=== PATIENT | female | born 1970 | race Two or more races ===

== ENCOUNTER 2023-08-04 17:51 | Inpatient (IN) | payer MEDICAID ==
[~2023-08-04] VITALS: Ht 170.2 cm; Wt 78.5 kg
[2023-08-04] MEDS ORDERED: PNEUMOCOCCAL VACCINE POLYVALENT 0.5 ML SYRINGE [PPSV23] IM. ONE (19:45)
[2023-08-04] MEDS ORDERED: INFLUENZA VIRUS VACCINE QVS 2023-24 (6MO+)/PF 60 MCG/0.5 ML SYRINGE IM. ONE (19:45)
[2023-08-04 19:56] LABS: GLUCOMETER DEV NAME(LOC) POC.BV; POC SARS-COV2 AG, FIA NEGATIVE (NEGATIVE)
[2023-08-05 03:05] VITALS: BP 138/84; PULSE 96; RESP 18; TEMP 97.5; O2SAT 99
[2023-08-05] MEDS ORDERED: POTASSIUM CHLORIDE 20 MEQ ER TABLET PO ONE (06:15)
[2023-08-05 07:56] LABS: BASOPHILS % (AUTO) 0.3 % (0.0-2.0); EOSINOPHILS % (AUTO) 0.2 % (1.0-6.0); HEMATOCRIT 38.4 % (36-46); HEMOGLOBIN 13.3 g/dL (12.0-16.0); LYMPHOCYTES # (AUTO) 0.6 K/uL (1.0-4.8); LYMPHOCYTES % (AUTO) 6.3 % (22.0-44.0); MEAN CORPUSCULAR HEMOGLOBIN 32.5 pg (26.0-34.0); MEAN CORPUSCULAR HGB CONC 34.7 G/dL (31.0-37.0); MEAN CORPUSCULAR VOLUME 94 fL (80-100); MONOCYTES # (AUTO) 0.8 K/uL (0.1-1.0); MONOCYTES % (AUTO) 8.9 % (2.0-9.0); NEUTROPHILS # (AUTO) 7.5 K/uL (1.8-7.7); NEUTROPHILS % (AUTO) 84.3 % (40.0-70.0); PLATELET COUNT (AUTO) 274 K/uL (150-450); RED CELL DISTRIBUTION WIDTH 13.3 % (11.5-14.5)
[2023-08-05 08:05] LABS: HEMOGLOBIN A1C 5.5 % (3.8-5.6)
[2023-08-05 08:12] LABS: ALANINE AMINOTRANSFERASE 23 U/L (12-78); ALBUMIN 3.6 g/dL (3.4-5.0); ALKALINE PHOSPHATASE 122 U/L (46-116); ANION GAP 14 mmol/L (8-16); ASPARTATE AMINOTRANSFERASE 25 U/L (15-37); BILIRUBIN,TOTAL 1.1 mg/dL (0.1-1.0); CALCIUM, TOTAL 9.1 mg/dL (8.8-10.5); CARBON DIOXIDE 23 mmol/L (22-29); CHLORIDE 107 mmol/L (98-107); CHOL/HDL RATIO 2.1 (3.9-5.7); CHOLESTEROL 141 mg/dL (131-200); CREATININE 0.63 mg/dL (0.60-1.30); FREE T4 (FREE THYROXINE) 1.65 ng/dL (0.76-1.46); GLOMERULAR FILTR. RATE CALC > 60 mL/min (>60); GLUCOSE,RANDOM 104 mg/dL (70-110); HDL CHOLESTEROL 66 mg/dL (40-60); LDL CHOL (CALC.) 58 mg/dL (0-130); POTASSIUM 3.3 mmol/L (3.5-5.1); SODIUM SERUM 144 mmol/L (136-145); THYROID STIMULATING HORMONE 1.22 uIU/mL (0.36-3.74); TOTAL PROTEIN, SERUM 7.8 g/dL (6.4-8.2); TRIGLYCERIDES 83 mg/dL (15-150); UREA NITROGEN, BLOOD 25 mg/dL (7-18)
[2023-08-05 08:13] VITALS: BP 145/79; PULSE 90; RESP 16; TEMP 98; O2SAT 96
[2023-08-05] MEDS: LORazepam 2 MG TABLET PO PRN (08:41)
[2023-08-05] MEDS: HALOPERIDOL 5 MG TABLET PO PRN (09:55)
[2023-08-05] MEDS: QUEtiapine FUMARATE 100 MG TABLET PO SCH ×2 (13:25→20:13)
[2023-08-05] MEDS: FLUoxetine HCL 20 MG CAPSULE PO SCH (13:25)
[2023-08-05] MEDS ORDERED: ACETAMINOPHEN 325 MG TABLET PO PRN (14:30)
[2023-08-05] MEDS ORDERED: MAG HYDROX/ALUMINUM HYD/SIMETH ES 30 ML SUSPENSION UDCUP PO PRN (14:30)
[2023-08-05] MEDS ORDERED: ALBUTEROL SULFATE HFA 90 MCG/PUFF 8 GM INHALER IH PRN (14:30)
[2023-08-05] MEDS ORDERED: LOPERAMIDE HCL 2 MG CAPSULE PO PRN (14:30)
[2023-08-05] MEDS ORDERED: NICOTINE 14 MG/24 HOUR PATCH TD PRN (14:30)
[2023-08-05] MEDS ORDERED: CloNIDine HCL 0.1 MG TABLET PO PRN (14:30)
[2023-08-05] MEDS ORDERED: DOCUSATE SODIUM 100 MG CAPSULE PO PRN (14:30)
[2023-08-05] MEDS ORDERED: MAGNESIUM HYDROXIDE SUSPENSION 30 ML UDCUP PO PRN (14:30)
[2023-08-05] MEDS ORDERED: ONDANSETRON HCL 4 MG TABLET PO PRN (14:30)
[2023-08-05] MEDS ORDERED: PETROLATUM,WHITE 28 GM JELLY TP PRN (14:30)
[2023-08-05] MEDS ORDERED: GuaiFENesin/D-METHORPHAN [SUGAR-FREE] 200-20MG/10 ML SYRUP UDCUP PO PRN (14:30)
[2023-08-05] MEDS ORDERED: IBUPROFEN 400 MG TABLET PO PRN (14:30)
[2023-08-05 20:00] VITALS: BP 117/86; PULSE 100; RESP 18; TEMP 97.6; O2SAT 97
[2023-08-06] MEDS: ZOLPIDEM TARTRATE 10 MG TABLET PO PRN (02:42)
[2023-08-06 07:47] LABS: BASOPHILS % (AUTO) 0.3 % (0.0-2.0); EOSINOPHILS % (AUTO) 1.2 % (1.0-6.0); HEMATOCRIT 37.2 % (36-46); HEMOGLOBIN 12.8 g/dL (12.0-16.0); LYMPHOCYTES # (AUTO) 0.7 K/uL (1.0-4.8); LYMPHOCYTES % (AUTO) 12.5 % (22.0-44.0); MEAN CORPUSCULAR HEMOGLOBIN 32.2 pg (26.0-34.0); MEAN CORPUSCULAR HGB CONC 34.4 G/dL (31.0-37.0); MEAN CORPUSCULAR VOLUME 94 fL (80-100); MONOCYTES # (AUTO) 0.5 K/uL (0.1-1.0); MONOCYTES % (AUTO) 8.6 % (2.0-9.0); NEUTROPHILS # (AUTO) 4.2 K/uL (1.8-7.7); NEUTROPHILS % (AUTO) 77.4 % (40.0-70.0); PLATELET COUNT (AUTO) 246 K/uL (150-450); RED BLOOD CELL COUNT(AUTO) 3.96 MIL/uL (4.00-5.20); RED CELL DISTRIBUTION WIDTH 13.2 % (11.5-14.5); WHITE BLOOD COUNT (AUTO) 5.5 K/uL (4.5-11.0)
[2023-08-06 07:54] LABS: HEMOGLOBIN A1C 5.4 % (3.8-5.6)
[2023-08-06 08:01] LABS: ALANINE AMINOTRANSFERASE 25 U/L (12-78); ALBUMIN 3.5 g/dL (3.4-5.0); ALKALINE PHOSPHATASE 114 U/L (46-116); ANION GAP 11 mmol/L (8-16); ASPARTATE AMINOTRANSFERASE 25 U/L (15-37); BILIRUBIN,TOTAL 0.5 mg/dL (0.1-1.0); CALCIUM, TOTAL 9.1 mg/dL (8.8-10.5); CARBON DIOXIDE 28 mmol/L (22-29); CHLORIDE 107 mmol/L (98-107); CREATININE 0.58 mg/dL (0.60-1.30); GLOMERULAR FILTR. RATE CALC > 60 mL/min (>60); GLUCOSE,RANDOM 94 mg/dL (70-110); POTASSIUM 3.4 mmol/L (3.5-5.1); SODIUM SERUM 146 mmol/L (136-145); TOTAL PROTEIN, SERUM 7.3 g/dL (6.4-8.2); UREA NITROGEN, BLOOD 23 mg/dL (7-18)
[2023-08-06 08:09] LABS: THYROID STIMULATING HORMONE 2.27 uIU/mL (0.36-3.74)
[2023-08-06 08:20] VITALS: BP 140/78; PULSE 116; RESP 19; TEMP 97.5; O2SAT 95
[2023-08-06] MEDS: MULTIVITAMINS WITH MINERALS, THERAPEUTIC TABLET PO SCH (08:20)
[2023-08-06] MEDS: QUEtiapine FUMARATE 100 MG TABLET PO SCH ×2 (08:20→21:00)
[2023-08-06] MEDS: FLUoxetine HCL 20 MG CAPSULE PO SCH (08:20)
[2023-08-06] MEDS ORDERED: POTASSIUM CHLORIDE 20 MEQ ER TABLET PO ONE (09:00)
[2023-08-06] MEDS: HALOPERIDOL 5 MG TABLET PO PRN (10:03)
[2023-08-06] MEDS: LORazepam 2 MG TABLET PO PRN (10:03)
[2023-08-06 21:07] VITALS: BP 131/91; PULSE 100; RESP 18; TEMP 97.5; O2SAT 99
[2023-08-07] MEDS: FLUoxetine HCL 20 MG CAPSULE PO SCH (08:23)
[2023-08-07] MEDS: QUEtiapine FUMARATE 100 MG TABLET PO SCH ×2 (08:23→20:00)
[2023-08-07] MEDS: LORazepam 2 MG TABLET PO PRN (08:23)
[2023-08-07] MEDS: HALOPERIDOL 5 MG TABLET PO PRN (08:23)
[2023-08-07] MEDS: MULTIVITAMINS WITH MINERALS, THERAPEUTIC TABLET PO SCH (08:24)
[2023-08-07 08:51] VITALS: BP 138/85; PULSE 98; RESP 20; TEMP 97.5; O2SAT 99
[2023-08-07 23:36] VITALS: BP 132/82; PULSE 97; RESP 18; TEMP 97.7; O2SAT 98
[2023-08-08] MEDS: MULTIVITAMINS WITH MINERALS, THERAPEUTIC TABLET PO SCH (08:02)
[2023-08-08] MEDS: QUEtiapine FUMARATE 100 MG TABLET PO SCH ×2 (08:02→21:02)
[2023-08-08] MEDS: FLUoxetine HCL 20 MG CAPSULE PO SCH (08:03)
[2023-08-08] MEDS: HALOPERIDOL 5 MG TABLET PO PRN ×2 (08:03→16:05)
[2023-08-08] MEDS: LORazepam 2 MG TABLET PO PRN ×2 (08:03→16:05)
[2023-08-08 08:11] VITALS: BP 128/87; PULSE 100; RESP 18; TEMP 98.1; O2SAT 100
[2023-08-08 20:24] VITALS: BP 139/93; PULSE 98; RESP 18; TEMP 97; O2SAT 98
[2023-08-09] MEDS: QUEtiapine FUMARATE 100 MG TABLET PO SCH ×2 (08:11→21:00)
[2023-08-09] MEDS: MULTIVITAMINS WITH MINERALS, THERAPEUTIC TABLET PO SCH (08:12)
[2023-08-09] MEDS: FLUoxetine HCL 20 MG CAPSULE PO SCH (08:12)
[2023-08-09 08:16] VITALS: BP 122/73; PULSE 82; RESP 16; TEMP 97.9; O2SAT 96
[2023-08-09] MEDS: HALOPERIDOL 5 MG TABLET PO PRN (12:46)
[2023-08-09 20:27] VITALS: BP 136/93; PULSE 80; RESP 16; TEMP 97.4; O2SAT 100
[2023-08-10] MEDS: MULTIVITAMINS WITH MINERALS, THERAPEUTIC TABLET PO SCH (08:01)
[2023-08-10] MEDS: QUEtiapine FUMARATE 100 MG TABLET PO SCH ×2 (08:01→20:12)
[2023-08-10] MEDS: FLUoxetine HCL 20 MG CAPSULE PO SCH (08:01)
[2023-08-10 08:18] VITALS: RESP 18
[2023-08-10 20:11] VITALS: BP 134/86; PULSE 67; RESP 18; TEMP 97.6; O2SAT 99
[2023-08-10] MEDS: ZOLPIDEM TARTRATE 10 MG TABLET PO PRN (20:12)
[2023-08-11 08:06] VITALS: BP 119/68; PULSE 78; RESP 16; TEMP 97.6; O2SAT 96
[2023-08-11] MEDS: FLUoxetine HCL 20 MG CAPSULE PO SCH (08:16)
[2023-08-11] MEDS: QUEtiapine FUMARATE 100 MG TABLET PO SCH ×2 (08:16→19:43)
[2023-08-11] MEDS: MULTIVITAMINS WITH MINERALS, THERAPEUTIC TABLET PO SCH (08:16)
[2023-08-11] MEDS: HALOPERIDOL 5 MG TABLET PO PRN (08:16)
[2023-08-11 08:59] LABS: ANION GAP 8 mmol/L (8-16); CALCIUM, TOTAL 8.9 mg/dL (8.8-10.5); CARBON DIOXIDE 28 mmol/L (22-29); CHLORIDE 105 mmol/L (98-107); CREATININE 0.64 mg/dL (0.60-1.30); GLOMERULAR FILTR. RATE CALC > 60 mL/min (>60); GLUCOSE,RANDOM 91 mg/dL (70-110); POTASSIUM 3.8 mmol/L (3.5-5.1); SODIUM SERUM 141 mmol/L (136-145); UREA NITROGEN, BLOOD 10 mg/dL (7-18)
[2023-08-11 19:52] VITALS: BP 133/88; PULSE 66; RESP 17; TEMP 96.6; O2SAT 98
[2023-08-11 23:54] VITALS: BP 133/88; PULSE 66; RESP 18; TEMP 96.6; O2SAT 98
[2023-08-12] MEDS: FLUoxetine HCL 20 MG CAPSULE PO SCH (08:32)
[2023-08-12] MEDS: MULTIVITAMINS WITH MINERALS, THERAPEUTIC TABLET PO SCH (08:32)
[2023-08-12] MEDS: QUEtiapine FUMARATE 100 MG TABLET PO SCH ×2 (08:32→21:01)
[2023-08-12 15:47] VITALS: BP 93/64; PULSE 76; RESP 17; TEMP 96.9; O2SAT 99
[2023-08-12 20:00] VITALS: BP 119/69; PULSE 83; RESP 18; TEMP 97.1; O2SAT 96
[2023-08-13] MEDS: QUEtiapine FUMARATE 100 MG TABLET PO SCH ×3 (08:01→20:37)
[2023-08-13] MEDS: MULTIVITAMINS WITH MINERALS, THERAPEUTIC TABLET PO SCH (08:01)
[2023-08-13] MEDS: FLUoxetine HCL 20 MG CAPSULE PO SCH (08:01)
[2023-08-13 08:18] VITALS: BP 123/71; PULSE 78; RESP 16; TEMP 97.6; O2SAT 99
[2023-08-13 20:00] VITALS: RESP 18
[2023-08-13] MEDS: HALOPERIDOL 5 MG TABLET PO PRN (20:09)
[2023-08-14 08:06] VITALS: BP 133/95; PULSE 83; RESP 18; TEMP 98; O2SAT 100
[2023-08-14] MEDS: MULTIVITAMINS WITH MINERALS, THERAPEUTIC TABLET PO SCH (08:26)
[2023-08-14] MEDS: FLUoxetine HCL 20 MG CAPSULE PO SCH (08:26)
[2023-08-14] MEDS: QUEtiapine FUMARATE 100 MG TABLET PO SCH ×2 (08:27→21:19)
[2023-08-14 21:31] VITALS: BP 126/80; PULSE 92; RESP 18; TEMP 97; O2SAT 98
[2023-08-15 08:30] VITALS: BP 111/77; PULSE 89; RESP 16; TEMP 97.6; O2SAT 97
[2023-08-15] MEDS: QUEtiapine FUMARATE 100 MG TABLET PO SCH ×2 (08:46→21:48)
[2023-08-15] MEDS: FLUoxetine HCL 20 MG CAPSULE PO SCH (08:46)
[2023-08-15] MEDS: MULTIVITAMINS WITH MINERALS, THERAPEUTIC TABLET PO SCH (08:47)
[2023-08-15 20:03] VITALS: BP 125/90; PULSE 73; RESP 17; TEMP 98.4
[2023-08-16 08:16] VITALS: BP 126/73; PULSE 92; RESP 17; TEMP 98.2; O2SAT 98
[2023-08-16] MEDS: MULTIVITAMINS WITH MINERALS, THERAPEUTIC TABLET PO SCH (08:17)
[2023-08-16] MEDS: FLUoxetine HCL 20 MG CAPSULE PO SCH (08:17)
[2023-08-16] MEDS: QUEtiapine FUMARATE 100 MG TABLET PO SCH ×2 (08:17→20:00)
[2023-08-16 20:02] VITALS: BP 129/88; PULSE 88; RESP 17; TEMP 98.4; O2SAT 100
[2023-08-17] MEDS: MULTIVITAMINS WITH MINERALS, THERAPEUTIC TABLET PO SCH ×2 (08:03→09:00)
[2023-08-17] MEDS: QUEtiapine FUMARATE 100 MG TABLET PO SCH ×4 (08:03→20:22)
[2023-08-17] MEDS: FLUoxetine HCL 20 MG CAPSULE PO SCH ×3 (08:03→11:13)
[2023-08-17 08:33] VITALS: RESP 16
[2023-08-17 20:30] VITALS: BP 122/77; PULSE 83; RESP 17; TEMP 98.2; O2SAT 100
[2023-08-18] MEDS: HALOPERIDOL 5 MG TABLET PO PRN (08:03)
[2023-08-18] MEDS: FLUoxetine HCL 20 MG CAPSULE PO SCH (08:03)
[2023-08-18] MEDS: QUEtiapine FUMARATE 100 MG TABLET PO SCH ×2 (08:04→20:17)
[2023-08-18] MEDS: MULTIVITAMINS WITH MINERALS, THERAPEUTIC TABLET PO SCH (08:04)
[2023-08-18 09:47] VITALS: BP 121/87; PULSE 79; RESP 18; TEMP 98.2; O2SAT 100
[2023-08-18 20:43] VITALS: BP 130/85; PULSE 104; RESP 18; TEMP 98; O2SAT 99
[2023-08-19] MEDS: HALOPERIDOL 5 MG TABLET PO PRN (06:59)
[2023-08-19] MEDS: MULTIVITAMINS WITH MINERALS, THERAPEUTIC TABLET PO SCH (08:06)
[2023-08-19] MEDS: QUEtiapine FUMARATE 100 MG TABLET PO SCH ×2 (08:06→20:29)
[2023-08-19] MEDS: FLUoxetine HCL 20 MG CAPSULE PO SCH (08:06)
[2023-08-19 08:44] VITALS: BP 113/68; PULSE 76; RESP 16; TEMP 97.9; O2SAT 95
[2023-08-19 22:50] VITALS: BP 123/65; PULSE 72; RESP 17; TEMP 97.5; O2SAT 97
[2023-08-20] MEDS: QUEtiapine FUMARATE 100 MG TABLET PO SCH ×2 (08:10→20:35)
[2023-08-20] MEDS: MULTIVITAMINS WITH MINERALS, THERAPEUTIC TABLET PO SCH (08:10)
[2023-08-20] MEDS: FLUoxetine HCL 20 MG CAPSULE PO SCH (08:10)
[2023-08-20 10:26] VITALS: BP 114/71; PULSE 86; RESP 17; TEMP 97.6; O2SAT 100
[2023-08-20 20:08] VITALS: BP 95/62; PULSE 83; RESP 17; TEMP 97.8; O2SAT 99
[2023-08-21] MEDS: MULTIVITAMINS WITH MINERALS, THERAPEUTIC TABLET PO SCH (08:09)
[2023-08-21] MEDS: FLUoxetine HCL 20 MG CAPSULE PO SCH (08:09)
[2023-08-21] MEDS: QUEtiapine FUMARATE 100 MG TABLET PO SCH ×2 (08:10→21:05)
[2023-08-21] MEDS: HALOPERIDOL 5 MG TABLET PO PRN (08:10)
[2023-08-21 09:09] VITALS: BP 123/85; PULSE 83; RESP 16; TEMP 98.7; O2SAT 99
[2023-08-21 21:35] VITALS: BP 104/60; PULSE 80; RESP 17; TEMP 97.2; O2SAT 100
[2023-08-22 08:19] VITALS: BP 118/74; PULSE 76; RESP 16; TEMP 97.9; O2SAT 100
[2023-08-22] MEDS: QUEtiapine FUMARATE 100 MG TABLET PO SCH (08:31)
[2023-08-22] MEDS: MULTIVITAMINS WITH MINERALS, THERAPEUTIC TABLET PO SCH (08:32)
[2023-08-22] MEDS: FLUoxetine HCL 20 MG CAPSULE PO SCH (08:32)
[2023-08-22] MEDS ORDERED: QUET100T34 PO (09:16)
[2023-08-22] MEDS ORDERED: FLUO20CA36 PO (09:16)
== END 2023-08-22 17:00 | disposition home or self-care (01) | DRG 750 ==
LOC: B3A 08-05 03:18
PROVIDERS: ADMIT Psychiatry & Neurology Psychiatry; ATTEND Psychiatry & Neurology Psychiatry
PROC: GZHZZZZ Group Psychotherapy (ICD-10-PCS; principal; 2023-08-05)
DX: F25.0 Schizoaffective disorder, bipolar type (principal); E03.9 Hypothyroidism, unspecified; I10 Essential (primary) hypertension; G47.00 Insomnia, unspecified; Z20.822 Contact with and (suspected) exposure to COVID-19; E87.6 Hypokalemia; Z79.899 Other long term (current) drug therapy; Z85.42 Personal history of malignant neoplasm of other parts of uterus
CPT/HCPCS: 80048; 80053; 80061; 83036; 84439; 84443; 85025; 90686; 90732

== ENCOUNTER 2023-08-04 19:22 | Emergency (ER) | payer MEDICAID, OTHER ==
[~2023-08-04] VITALS: Ht 170.2 cm; Wt 82.0 kg
[2023-08-04 21:45] VITALS: TEMP 99.8
[2023-08-04 22:21] LABS: BASOPHILS % (AUTO) 0.6 % (0.0-2.0); EOSINOPHILS % (AUTO) 0.2 % (1.0-6.0); HEMATOCRIT 40.5 % (36-46); LYMPHOCYTES # (AUTO) 0.8 K/uL (1.0-4.8); LYMPHOCYTES % (AUTO) 7.1 % (22.0-44.0); MEAN CORPUSCULAR HEMOGLOBIN 32.2 pg (26.0-34.0); MEAN CORPUSCULAR HGB CONC 34.5 G/dL (31.0-37.0); MEAN CORPUSCULAR VOLUME 93 fL (80-100); MONOCYTES # (AUTO) 0.9 K/uL (0.1-1.0); MONOCYTES % (AUTO) 8.2 % (2.0-9.0); NEUTROPHILS # (AUTO) 9.6 K/uL (1.8-7.7); NEUTROPHILS % (AUTO) 83.9 % (40.0-70.0); PLATELET COUNT (AUTO) 310 K/uL (150-450); RED BLOOD CELL COUNT(AUTO) 4.34 MIL/uL (4.00-5.20); RED CELL DISTRIBUTION WIDTH 13.1 % (11.5-14.5); WHITE BLOOD COUNT (AUTO) 11.5 K/uL (4.5-11.0)
[2023-08-04] MEDS ORDERED: SODIUM CHLORIDE 0.9% 1,000 ML IV ONE (22:30)
[2023-08-04 22:39] LABS: ANION GAP 17 mmol/L (8-16); CALCIUM, TOTAL 9.5 mg/dL (8.8-10.5); CARBON DIOXIDE 21 mmol/L (22-29); CHLORIDE 104 mmol/L (98-107); CREATININE 0.91 mg/dL (0.60-1.30); GLOMERULAR FILTR. RATE CALC > 60 mL/min (>60); GLUCOSE,RANDOM 127 mg/dL (70-110); POTASSIUM 3.3 mmol/L (3.5-5.1); SODIUM SERUM 142 mmol/L (136-145); UREA NITROGEN, BLOOD 33 mg/dL (7-18)
[2023-08-04 22:46] LABS: ALANINE AMINOTRANSFERASE 27 U/L (12-78); ALKALINE PHOSPHATASE 133 U/L (46-116); ASPARTATE AMINOTRANSFERASE 27 U/L (15-37); BILIRUBIN,TOTAL 0.9 mg/dL (0.1-1.0); TOTAL PROTEIN, SERUM 8.7 g/dL (6.4-8.2)
[2023-08-04 22:58] LABS: ALCOHOL, BLOOD (SERUM) < 3 mg/dL (0-10)
[2023-08-05 01:31] VITALS: BP 136/96; PULSE 102; RESP 16
[2023-08-05 02:13] LABS: COVID AG,FIA SOURCE NASAL SWAB
[2023-08-05 02:39] LABS: SARS-COV2 (COVID) ANTIGEN,FIA Negative (Negative)
== END 2023-08-05 02:40 | disposition home or self-care (01) ==
LOC: EMS 19:23
DX: F20.9 Schizophrenia, unspecified (principal); Z20.822 Contact with and (suspected) exposure to COVID-19
CPT/HCPCS: 99284; 96360; 70450; 87426; 80053; 85025; 36415; G0480